=== PATIENT | male | born 1960 | race Caucasian/White ===

== ENCOUNTER 2017-03-03 21:24 | Outpatient (CLI) ==
[2013-11-20 10:12] VITALS: BMI 31.5
[2017-03-03 21:38] LABS: OCCULT BLOOD INTERNAL QC 1 INTERNAL QC VALID; OCCULT BLOOD SAMPLE 1 NEGATIVE (NEGATIVE)
== END 2017-03-03 21:25 | disposition home or self-care (01) ==
LOC: NONPT 21:24
PROVIDERS: ATTEND General Practice
DX: Z12.11 Encounter for screening for malignant neoplasm of colon (principal)
CPT/HCPCS: 82272

== ENCOUNTER 2017-03-06 12:18 | Outpatient (CLI) ==
[2013-11-20 10:12] VITALS: BMI 31.5
[2017-03-06 12:28] LABS: BASOPHILS # (AUTO) 0.1 K/uL (0-0.2); BASOPHILS % (AUTO) 1.3 % (0.0-3.0); EOSINOPHILS # (AUTO) 0.2 K/ul (0.0-0.7); EOSINOPHILS % (AUTO) 3.2 % (0.0-7.0); HEMATOCRIT 33.7 % (42.0-52.0); HEMOGLOBIN 11.6 g/dl (14.0-18.0); IMMATURE GRANULOCYTE % (AUTO) 0.2 % (0.0-5.0); LYMPHOCYTES # (AUTO) 2.2 K/uL (0.60-3.4); LYMPHOCYTES % (AUTO) 40.9 (10.0-50.0); MEAN CORPUSCULAR HEMOGLOBIN 31.5 pg (27.0-31.0); MEAN CORPUSCULAR HGB CONC 34.4 (31.8-35.4); MEAN CORPUSCULAR VOLUME 91.6 fl (80.0-94.0); MONOCYTES # (AUTO) 0.4 K/uL (0.4-2.0); MONOCYTES % (AUTO) 7.2 (0-10); NEUTROPHILS # (AUTO) 2.5 K/ul (2.0-6.9); NEUTROPHILS % (AUTO) 47.2; PLATELET COUNT 352 10^3/uL (140-440); RED BLOOD COUNT 3.68 10^6/ul (4.70-6.10); WHITE BLOOD COUNT 5.28 K/ul (4.2-10.2)
[2017-03-06 12:30] LABS: BILIRUBIN,URINE Negative (NEGATIVE); KETONES,URINE Negative (NEGATIVE); LEUKOCYTE ESTERASE ,URINE Trace (NEGATIVE); NITRITE,URINE Negative (NEGATIVE); PH,URINE 5.5 (5-9); PROTEIN,URINE Negative (NEGATIVE); URINE, BLOOD Negative (NEGATIVE)
[2017-03-06 12:44] LABS: ALBUMIN/GLOBULIN RATIO 1.29; ANION GAP 13.2; BILIRUBIN,TOTAL 0.44 mg/dL (0.00-1.20); CALCIUM 9.9 mg/dL (8.2-10.2); POTASSIUM 4.2 mmol/L (3.5-5.1); TOTAL PROTEIN 7.1 g/dL (6.4-8.2)
[2017-03-06 12:45] LABS: BUN/CREATININE RATIO 13.95; CHOL/HDL RATIO 4.1 (4.5-6.4); CREATININE 0.86 mg/dL (0.60-1.10)
[2017-03-06 12:47] LABS: ADD URINE MICROSCOPIC YES
== END 2017-03-06 12:19 | disposition home or self-care (01) ==
LOC: LAB 12:18
PROVIDERS: ATTEND General Practice
DX: R35.0 Frequency of micturition (principal); I10 Essential (primary) hypertension; Z76.89 Persons encountering health services in other specified circumstances; Z12.5 Encounter for screening for malignant neoplasm of prostate
CPT/HCPCS: 36415; 80053; 80061; 81001; 85025; 87086

== ENCOUNTER 2017-09-12 12:19 | Outpatient (CLI) ==
[2013-11-20 10:12] VITALS: BMI 31.5
--- NOTE | 2017-09-12 12:50 | DI ---
Exam: Three x-rays of the right shoulder. Comparison: None available. Reason for exam: Pain in right shoulder. FINDINGS: No acute fracture or dislocation. The humeral head articulates to the bony glenoid. The clavicle is intact. The scapular Y-view appears grossly unremarkable. No unexplained calcific soft tissue density or radiopaque retained foreign body. Impression: No acute fracture or dislocation in the right shoulder.
== END 2017-09-12 12:20 | disposition home or self-care (01) ==
LOC: FCC-LAB 12:19
PROVIDERS: ATTEND General Practice
DX: M25.511 Pain in right shoulder (principal); D64.9 Anemia, unspecified; F10.10 Alcohol abuse, uncomplicated; I10 Essential (primary) hypertension
CPT/HCPCS: 36415; 80053; 80061; 85025

== ENCOUNTER 2018-01-06 16:40 | Emergency (ER) ==
[2018-01-06 16:44] VITALS: BP 122/83; TEMP 97.9; BMI 28.7
[2018-01-06] MEDS ORDERED: LIDOCAINE HCL 1% SDV SUBCUT STA (17:40)
--- NOTE | 2018-01-06 17:40 | ED.PDOC ---
General ED Provider: Dr. HANNAH SOARES Chief Complaint: Hand Laceration Stated Complaint: Patient states he sustained a laceration accidentally with a Kn[place] today. Time Seen by Physician: 17:38 Mode of Arrival: Walk-In Information Source: Patient Primary Care [facility] and Triage Documentation Reviewed and Agree: Yes Does patient meet sepsis criteria?: No If yes, has appropriate treatment been initiated?: No System Inflammatory Response Syndrome: Not Applicable Sepsis Protocol: For patient's 13 years and over: Temp is 96.8 and below OR 101 and greater Pulse >90 BPM Resp >20/minute Acutely Altered Mental Status Are patient's symptoms suggestive of a new infection, such as: -Pneumonia -Skin, Soft Tissue -Endocarditis -UTI -Bone, Joint Infection -Implantable Device -Acute Abdominal Infection -Wound Infection -Meningitis -Blood Stream Catheter Infection -Unknown Skin Complaint Exam - Laceration/Abrasion/Hand Complaint/Exam Location of Injury: Right Mechanism of Injury: Laceration Onset/Duration: 1 hour prior Symptoms Are: Still present Initial Severity: Moderate Current Severity: Mild Alleviating: Compression Associated Signs and Symptoms: Denies: Fever, Chills, Erythema, Numbness, Tingling Related History: Reports: Right hand dominant Hand Picture: 1 - 3 cm laceration linear Differential Diagnoses: Laceration Review of Systems - Review Of Systems Constitutional: Reports: No symptoms Eyes: Reports: No symptoms Ears, Nose, Mouth, Throat: Reports: No symptoms Respiratory: Reports: No symptoms Cardiac: Reports: No symptoms GI: Reports: No symptoms : Reports: No symptoms Musculoskeletal: Reports: No symptoms Skin: Reports: Other (hand laceration ) Neurological: Reports: No symptoms Endocrine: Reports: No symptoms Hematologic/Lymphatic: Reports: No symptoms All Other Systems: Reviewed and Negative Past Medical History - Past Medical History Previously Healthy: Yes Endocrine: Reports: None Cardiovascular: Reports: None Respiratory: Reports: None Hematological: Reports: None Gastrointestinal: Reports: None Genitourinary: Reports: None Neuro/Psych: Reports: None Musculoskeletal: Reports: None Cancer: Reports: None - Surgical History General Surgical History: Reports: None - Family History Family History: Reports: None - Social History Smoking Status: Former smoker Hx Substance Use: No Alcohol Screening: Occasionally Physical Exam - Physical Exam Appearance: Well-appearing Pain Distress: Mild Respiratory: Airway patent, Breath sounds clear, Breath sounds equal, Respirations nonlabored Cardiovascular: RRR, Pulses normal, No rub, No murmur Musculoskeletal: Normal strength, ROM intact, No edema Skin: Warm, Dry ([place]acer[place] right hand. ) Neurological: Motor intact, Reflexes intact, Alert, Oriented Procedures - Laceration/Wound Repair Right Dorsum of hand Wound Description: Linear Wound Length (cm): 3 Wound Width: 1 Wound Depth: 0.2 Wound Explored: Clean Wound Irrigated: Yes Wound Prep: Hibiclens Anesthesia: Lidocaine Wound Repaired With: Sutures Suture Size and Type: Prolene 4.0 Number of Sutures: 13 (Running ) Layer Closure?: No Sterile Dressing Applied?: Yes Splint Applied?: No Progress: Tolerated procedure well. Re-Evaluation - Re-Evaluation Time of Re-Evaluation: 18:08 Status: Improved Critical Care Note - Critical Care Note Total Time (mins): 0 Course - Course Orders, Labs, Meds: Orders Category Date Time Status Diphth,Pertuss(Acell),Tet Vac [Boostrix] MEDS 01/06/18 18:03 Once 0.5 ml IM .ONCE ONE Lidocaine HCl/Pf [Lidocaine HCl 1% Sdv] MEDS 01/06/18 17:40 Discontinued 5 ml SUBCUT ONCE STA Medications Discontinued Medications Generic Name Dose Route Start Last Admin Trade Name Freq PRN Reason Stop Dose Admin Diphtheria/Pertussis/Tetanus Vacc 0.5 ml 01/06/18 18:03 Boostrix IM 01/06/18 18:04 .ONCE ONE Lidocaine HCl 5 ml 01/06/18 17:40 Lidocaine Hcl 1% Sdv SUBCUT 01/06/18 17:41 ONCE STA Vital Signs: Temp Pulse Resp BP Pulse Ox 01/06/18 16:41 97.9 F 70 20 122/83 95 Departure - Departure Time of Disposition: 18:07 Disposition: HOME SELF-CARE Discharge Problem: Laceration of hand Instructions: Laceration (ED) Condition: Stable Pt referred to PMD for follow-up: Yes IPMP verified?: No Additional Instructions: Keep wound clean an Dry Have sutures removed in 7-10 days Report any sings of infection Allergies/Adverse Reactions: Allergies No Known Allergies Allergy (Verified 01/06/18 16:44) Home Medications: Ambulatory Orders Multivitamin with Minerals [One Daily] 1 each PO DAILY 11/20/13 Disposition Discussed With: Patient, Family
[2018-01-06] MEDS ORDERED: BOOSTRIX IM ONE (18:03)
== END 2018-01-06 18:28 | disposition home or self-care (01) ==
LOC: ED 16:40
DX: S61.411A Laceration without foreign body of right hand, initial encounter (principal); W26.0XXA Contact with knife, initial encounter
CPT/HCPCS: 90471; 90715; 99283

== ENCOUNTER 2018-07-30 08:43 | Emergency (ER) ==
[2018-07-30 08:46] VITALS: BP 135/85; TEMP 100.3; BMI 31.1
--- NOTE | 2018-07-30 09:08 | ED.PDOC ---
General ED Provider: Dr. TAYLOR ALVAREZ Chief Complaint: Respiratory Complaint Stated Complaint: cough.congestion flu like symptoms Time Seen by Physician: 09:00 Mode of Arrival: Walk-In Information Source: Patient Exam Limitations: No limitations [facility] and Triage Documentation Reviewed and Agree: Yes Does patient meet sepsis criteria?: No System Inflammatory Response Syndrome: Not Applicable Sepsis Protocol: For patient's 13 years and over: Temp is 96.8 and below OR 101 and greater Pulse >90 BPM Resp >20/minute Acutely Altered Mental Status Are patient's symptoms suggestive of a new infection, such as: -Pneumonia -Skin, Soft Tissue -Endocarditis -UTI -Bone, Joint Infection -Implantable Device -Acute Abdominal Infection -Wound Infection -Meningitis -Blood Stream Catheter Infection -Unknown Respiratory Complaint Exam - Respiratory Complaint/Exam Symptoms Are: Resolved Timing: Intermittent Initial Severity: Mild Current Severity: None Location: Nose, Throat, Chest Character: Reports: Non-productive cough Aggravating: Reports: URI Alleviating: Reports: Spontaneous resolution Associated Signs and Symptoms: Reports: URI, Nasal congestion. Denies: Rapid breathing, Dyspnea, Fever, Chills, Chest pain, Pleuritic chest pain, Wheezing, Hemoptysis, Dizziness, Calf pain, Calf swelling, Edema, Hoarseness, Sinus discomfort, Vomiting, Sore throat, Weight loss, Decreased oral intake, Increased thirst, Increased appetite, Increased urination History of Healthcare-Acquired Pneumonia: No Related Surgical History: Reports: None Pulmonary Embolism Risk Factors: None Cardiac Risk Factors: Reports: None Pseudomonas Risk Factors: Reports: None Tuberculosis Risk Factors: Reports: None Status Asthmaticus Risk Factors: Reports: None Home Oxygen Use: No Recent Stress Test: No Recent Echo/LV Function: No Current Antibiotic Use: No Current Asthma Medication Use: No Respiratory Distress: None Inadequate Respiratory Effort: No Dysphagia Present: No Stridor Present: No JVD Present: No Accessory Muscle Use: No Retractions: Not Present Diminished Breath Sounds: No Sinus Tenderness: None Differential Diagnoses: Pneumonia, Bronchitis, URI Review of Systems - Review Of Systems Constitutional: Reports: Chills, Malaise Eyes: Reports: No symptoms Ears, Nose, Mouth, Throat: Reports: Throat pain Respiratory: Reports: Cough Cardiac: Reports: No symptoms GI: Reports: No symptoms : Reports: No symptoms Musculoskeletal: Reports: No symptoms Skin: Reports: No symptoms Neurological: Reports: No symptoms Endocrine: Reports: No symptoms Hematologic/Lymphatic: Reports: No symptoms All Other Systems: Reviewed and Negative Past Medical History - Past Medical History Previously Healthy: Yes Endocrine: Reports: None Cardiovascular: Reports: None Respiratory: Reports: None Hematological: Reports: None Gastrointestinal: Reports: None Genitourinary: Reports: None Neuro/Psych: Reports: None Musculoskeletal: Reports: None Cancer: Reports: None - Surgical History General Surgical History: Reports: None - Family History Family History: Reports: None - Social History Smoking Status: Former smoker Hx Substance Use: No Alcohol Screening: Occasionally Physical Exam - Physical Exam Appearance: Well-appearing, No pain distress, Well-nourished Eyes: DERIC, EOMI, Conjunctiva clear ENT: Erythema Respiratory: Airway patent, Breath sounds clear, Breath sounds equal, Respirations nonlabored Cardiovascular: RRR, Pulses normal, No rub, No murmur GI/: Soft, Nontender, No masses, Bowel sounds normal, No Organomegaly Musculoskeletal: Normal strength, ROM intact, No edema, No calf tenderness Skin: Warm, Dry, Normal color Neurological: Sensation intact, Motor intact, Reflexes intact, Cranial nerves intact, Alert, Oriented Psychiatric: Affect appropriate, Mood appropriate Critical Care Note - Critical Care Note Total Time (mins): 0 Course - Course Vital Signs: Temp Pulse Resp BP Pulse Ox 07/30/18 08:44 100.3 F H 79 20 135/85 94 L Departure - Departure Time of Disposition: 09:07 Disposition: HOME SELF-CARE Discharge Problem: Bronchitis, Viral syndrome Pharyngitis Qualifiers: Pharyngitis/tonsillitis etiology: unspecified etiology Qualified Code(s): J02.9 - Acute pharyngitis, unspecified Instructions: Viral Syndrome (ED) Condition: Good Pt referred to PMD for follow-up: Yes IPMP verified?: No Additional Instructions: Please call your Family Physician as soon as possible to schedule a follow-up appointment. Allergies/Adverse Reactions: Allergies No Known Allergies Allergy (Verified 07/30/18 08:46) Home Medications: Ambulatory Orders Multivitamin with Minerals [One Daily] 1 each PO DAILY 11/20/13 Loratadine [Claritin] 10 mg PO EVERY OTHER DAY 07/30/18
== END 2018-07-30 09:22 | disposition home or self-care (01) ==
LOC: ED 08:43
DX: J40 Bronchitis, not specified as acute or chronic (principal); B34.9 Viral infection, unspecified; J02.9 Acute pharyngitis, unspecified
CPT/HCPCS: 99282

== ENCOUNTER 2018-08-13 09:06 | Emergency (ER) ==
[2018-08-13 09:17] VITALS: BP 120/83; TEMP 99; BMI 30.2
--- NOTE | 2018-08-13 09:28 | ED.PDOC ---
General ED Provider: Dr. TAYLOR ALVAREZ Chief Complaint: Respiratory Complaint Stated Complaint: flu like symptoms see 2 weeks ago stated he is not improved Time Seen by Physician: 09:15 (seen with aLIBBY AT ALL TIMES NO RESPIRATORY DISTRESS, TACHYPNEA ) Mode of Arrival: Walk-In Information Source: Patient Exam Limitations: No limitations [facility] Nursing and Triage Documentation Reviewed and Agree: Yes Does patient meet sepsis criteria?: No If yes, has appropriate treatment been initiated?: No System Inflammatory Response Syndrome: Not Applicable Sepsis Protocol: For patient's 13 years and over: Temp is 96.8 and below OR 101 and greater Pulse >90 BPM Resp >20/minute Acutely Altered Mental Status Are patient's symptoms suggestive of a new infection, such as: -Pneumonia -Skin, Soft Tissue -Endocarditis -UTI -Bone, Joint Infection -Implantable Device -Acute Abdominal Infection -Wound Infection -Meningitis -Blood Stream Catheter Infection -Unknown Respiratory Complaint Exam - Respiratory Complaint/Exam Onset/Duration: 14 DAYS Symptoms Are: Still present Timing: Intermittent Initial Severity: Mild Current Severity: Mild Location: Nose, Throat, Chest Character: Reports: Non-productive cough, Dry cough Aggravating: Reports: URI Alleviating: Reports: None Associated Signs and Symptoms: Reports: URI, Nasal congestion. Denies: Rapid breathing, Dyspnea, Fever, Chills, Chest pain, Pleuritic chest pain, Wheezing, Hemoptysis, Dizziness, Calf pain, Calf swelling, Edema, Hoarseness, Sinus discomfort, Vomiting, Sore throat, Weight loss, Decreased oral intake, Increased thirst, Increased appetite, Increased urination Related History: Reports: Similar episode History of Healthcare-Acquired Pneumonia: No Related Surgical History: Reports: None Pulmonary Embolism Risk Factors: None Cardiac Risk Factors: Reports: None Pseudomonas Risk Factors: Reports: None Tuberculosis Risk Factors: Reports: None Status Asthmaticus Risk Factors: Reports: None Home Oxygen Use: No Recent Stress Test: No Recent Echo/LV Function: No Current Antibiotic Use: No Current Asthma Medication Use: No Respiratory Distress: None Inadequate Respiratory Effort: No Dysphagia Present: No Stridor Present: No JVD Present: No Accessory Muscle Use: No Retractions: Not Present Diminished Breath Sounds: No Sinus Tenderness: None Grunting Respirations: No Kussmaul Respirations: No Differential Diagnoses: Pneumonia, Bronchitis Review of Systems - Review Of Systems Constitutional: Reports: Malaise Eyes: Reports: No symptoms Ears, Nose, Mouth, Throat: Reports: No symptoms Respiratory: Reports: Cough Cardiac: Reports: No symptoms GI: Reports: No symptoms : Reports: No symptoms Musculoskeletal: Reports: No symptoms Skin: Reports: No symptoms Neurological: Reports: No symptoms Endocrine: Reports: No symptoms Hematologic/Lymphatic: Reports: No symptoms All Other Systems: Reviewed and Negative Past Medical History - Past Medical History Previously Healthy: Yes Endocrine: Reports: None Cardiovascular: Reports: None Respiratory: Reports: None Hematological: Reports: None Gastrointestinal: Reports: None Genitourinary: Reports: None Neuro/Psych: Reports: None Musculoskeletal: Reports: None Cancer: Reports: None - Surgical History General Surgical History: Reports: None - Family History Family History: Reports: None - Social History Smoking Status: Former smoker Hx Substance Use: No Alcohol Screening: None Physical Exam - Physical Exam Appearance: Well-appearing, No pain distress, Well-nourished Eyes: DERIC, EOMI, Conjunctiva clear ENT: Ears normal, Nose normal, Oropharynx normal Respiratory: Airway patent, Breath sounds clear, Breath sounds equal, Respirations nonlabored Cardiovascular: RRR, Pulses normal, No rub, No murmur GI/: Soft, Nontender, No masses, Bowel sounds normal, No Organomegaly Musculoskeletal: Normal strength, ROM intact, No edema, No calf tenderness Skin: Warm, Dry, Normal color Neurological: Sensation intact, Motor intact, Reflexes intact, Cranial nerves intact, Alert, Oriented Psychiatric: Affect appropriate, Mood appropriate Critical Care Note - Critical Care Note Total Time (mins): 0 Course - Course Hematology/Chemistry: 08/13/18 09:38 Orders, Labs, Meds: Lab Review 08/13/18 09:38 WBC 7.64 RBC 3.92 L Hgb 11.7 L Hct 34.9 L MCV 89.0 MCH 29.8 MCHC 33.5 RDW Coeff of Harry 12.2 Plt Count 336 Immature Gran % (Auto) 0.3 Neut % (Auto) 63.4 Lymph % (Auto) 23.6 [place] % (Auto) 8.4 Eos % (Auto) 3.4 Baso % (Auto) 0.9 Immature Gran # (Auto) 0.0 Neut # (Auto) 4.9 Lymph # (Auto) 1.8 [place] # (Auto) 0.6 Eos # (Auto) 0.3 Baso # (Auto) 0.1 Orders Category Date Time Status CBC W/ AUTO DIFF Stat LAB 08/13/18 09:38 Completed FLU A/B MOLECULAR Stat LAB 08/13/18 09:25 Received MOLECULAR GROUP A STREP Stat LAB 08/13/18 09:25 Completed CHEST, 2 VIEWS PA & LAT Stat RADS 08/13/18 09:24 Ordered Vital Signs: Temp Pulse Resp BP Pulse Ox 08/13/18 09:08 99.0 F 69 20 120/83 93 L Departure - Departure Time of Disposition: 10:30 Disposition: HOME SELF-CARE Discharge Problem: Cough Anemia Qualifiers: Anemia type: unspecified type Qualified Code(s): D64.9 - Anemia, unspecified Instructions: Chronic Cough (ED), Anemia (ED) Condition: Good Pt referred to PMD for follow-up: Yes IPMP verified?: No Additional Instructions: Please call your Family Physician as soon as possible to schedule a follow-up appointment. YOUR ANEMIC THIS ANEMIA MAY BE RELATED TO A ISSUE IN YOUR COLON. MAKE SURE YOU SEE YOUR M.D. TO GET THIS PROCEDURE DONE TO RULE OUT COLON ISSUES LIKE POLYPS, CANCER ECT Allergies/Adverse Reactions: Allergies No Known Allergies Allergy (Verified 07/30/18 08:46) Home Medications: Ambulatory Orders Multivitamin with Minerals [One Daily] 1 each PO DAILY 11/20/13 Loratadine [Claritin] 10 mg PO EVERY OTHER DAY 07/30/18 Disposition Discussed With: Patient
--- NOTE | 2018-08-13 10:22 | DI ---
EXAM: Chest two views HISTORY: Cough COMPARISON: 11/20/2013 TECHNIQUE: Two views of the chest were performed FINDINGS: The lungs are clear. There is no pleural effusion or pneumothorax. The heart is normal i n size. The mediastinal contour is normal. There are no acute abnormalities of the bones. IMPRESSION: No acute cardiopulmonary process.
== END 2018-08-13 10:51 | disposition home or self-care (01) ==
LOC: ED 09:06
DX: R05 Cough (principal); D64.9 Anemia, unspecified; R68.89 Other general symptoms and signs
CPT/HCPCS: 36415; 85025; 87502; 87651; 99283